=== PATIENT | male | born 1960 | race Caucasian/White ===

== ENCOUNTER 2024-06-21 19:16 | Emergency (ER) | payer MEDICARE, OTHER ==
[~2024-06-21] VITALS: Ht 167.6 cm; Wt 84.4 kg
[2024-06-21 19:26] VITALS: BP 182/110; PULSE 81; RESP 18; TEMP 97.2; O2SAT 98
[2024-06-21 19:55] VITALS: BP 180/90; PULSE 82; RESP 16; TEMP 97.2; O2SAT 98
== END 2024-06-21 19:55 | disposition home or self-care (01) ==
LOC: MED 19:16
DX: Z02.89 Encounter for other administrative examinations (principal); J45.909 Unspecified asthma, uncomplicated; E11.9 Type 2 diabetes mellitus without complications; Z85.46 Personal history of malignant neoplasm of prostate
CPT/HCPCS: 99283